=== PATIENT | female | born 1990 | race Caucasian/White ===

== ENCOUNTER → 2025-08-23 | Outpatient (CLI) | payer OTHER, SELFPAY ==
--- NOTE | 2025-08-23 15:16 | US_ITS ---
PROCEDURE: PELVIC W/ TRANSVAGINAL REASON FOR EXAM: RE-EVAL History of fibroids. TECHNIQUE: Procedure Code: [id number] Modality: US Procedure: PELVIC W/ TRANSVAGINAL COMPARISON: None FINDINGS: Measurements: Uterus: 10.1 cm x 6.5 cm x 4.7 cm with a volume of 158.9 mL Endometrial Thickness: 12 mm Right Ovary: 4 cm x 2.6 cm x 2.5 cm with a volume of 8.9 mL. Left Ovary: 3.6 cm x 2.4 cm x 2.1 cm with a volume of 5.3 mL. TRANSABDOMINAL: Uterus: Heterogeneous echotexture. Several small fibroids. The largest measures 1.3 cm x 1.3 cm 0.9 cm. Endometrium: 12 mm. It is hyperechoic. Right ovary: Normal size and echotexture. Left ovary: Normal size and echotexture. Other: No large pelvic mass identified. Transvaginal sonography was performed to better visualize the endometrium. TRANSVAGINAL: Uterus: Anteverted. Fibroid uterus. Endometrium: Normal echotexture. Right ovary: Normal size and echotexture. Left ovary: Normal size and echotexture. Other adnexal findings: None. Cul-de-sac: No free intraperitoneal fluid identified. Tenderness: No tenderness US/Pelvic w/ Transvaginal IMPRESSION: Fibroid uterus. Reading Location: [place] [id number]
== END | disposition home or self-care (01) ==
LOC: US 15:13
PROVIDERS: PCP Nurse Practitioner Family; Referring Provider Nurse Practitioner Family; Visit Provider Nurse Practitioner Family
DX: D25.9 Leiomyoma of uterus, unspecified (principal); R31.0 Gross hematuria
CPT/HCPCS: 76830; 76856